=== PATIENT | male | born 2000 | race African-American/Black ===

== ENCOUNTER 2024-06-02 19:37 | Emergency (ER) | payer OTHER, SELFPAY ==
[2024-06-02] MEDS ORDERED: ONDANSETRON 4 MG/2 ML VIAL ONE (21:02)
[2024-06-02] MEDS ORDERED: NA CHLORIDE 0.9% 1,000 ML ONE (21:02)
[2024-06-02 21:04] LABS: Absolute Basophils 0.1 K/uL (0-0.5); Absolute Eosinophils 0.2 K/uL (0-0.5); Absolute Lymphocytes (CBC) 2.1 K/uL (0.7-4.9); Absolute Monocytes 0.5 K/uL (0.1-1.3); Absolute Neutrophil 2.5 K/uL (1.8-8.0); Basophils % 1.5 % (0-1.3); Eosinophils % 4.1 % (0-4.4); Hematocrit 45.9 % (39.6-49.0); Hemoglobin 15.8 g/dL (13.6-17.9); Lymphocytes % 39.3 % (15.3-44.8); MCH 29.9 pg (27.0-35.0); MCHC 34.4 g/dL (32.0-36.0); MPV 8.6 fL (7.6-11.3); Monocytes % 9.1 % (3.3-12.3); Nucleated Red Blood Cells % 0.2 % (0-0); Platelets 229 thou/uL (152-406); RBC Red Blood Cell Count 5.27 M/uL (4.33-5.43); Red Cell Distribution Width 13.7 % (12.1-15.2)
[2024-06-02 21:20] LABS: Albumin 3.7 g/dL (3.4-5.0); Bilirubin Total 0.9 mg/dL (0.2-1.0); Globulin 3.7 g/dL (2.3-3.5); Protein, Total 7.4 g/dL (6.4-8.2)
--- NOTE | 2024-06-02 22:32 | RAD REPORT ---
EXAMINATION: CT Abdomen Pelvis W Contrast CLINICAL INDICATION: Male, 24 years old. ABD PAIN TECHNIQUE: CT abdomen and pelvis was performed, after the administration of IV contrast, as per [facility] protocol. Axial, sagittal and coronal reconstructions were obtained. One or more of the following dose reduction techniques were used: Automated exposure control, adjustment of the mA and k V according to patient size, and iterative reconstruction. Unless otherwise specified, incidental findings do not require dedicated imaging follow-up. COMPARISON: No prior exam. FINDINGS: LOWER CHEST: The visualized lung bases are clear. LIVER: Normal in size and contour. No focal lesion. BILIARY SYSTEM: No suspicious abnormalities. SPLEEN: Normal size. No focal lesion. PANCREAS: No mass, ductal dilation, or apolinar-pancreatic fluid. ADRENALS: Normal; no mass. KIDNEYS: Normal size and contour. No hydronephrosis. URINARY BLADDER: Unremarkable. GASTROINTESTINAL TRACT: No evidence of free air, bowel obstruction or abscess. Trace free fluid in the deep pelvis. APPENDIX: Normal appendix. LYMPH NODES: No lymphadenopathy. MUSCULOSKELETAL: No acute or suspicious osseous abnormality. ADDITIONAL FINDINGS: None. IMPRESSION: Trace free fluid in the deep pelvis, could relate to a mild infectious or inflammatory process. No other acute or concerning abnormalities seen in the abdomen or pelvis.
--- NOTE | 2024-06-02 22:59 | EDPHYS ---
Physician Documentation [facility] Name: Bridget Soto Jr Age: 24 yrs Sex: Male : 2000 Arrival Date: 06/02/2024 Time: 19:37 Bed 7 Private MD: ED Physician Bigg Laguna HPI: 06/02 22:02 This 24 yrs old Black Male presents to ER via Ambulatory with complaints of sb4 Nausea/Vomiting/Diarrhea. 22:02 The patient presents to the emergency department with nausea, vomiting, diarrhea. sb4 Onset: The symptoms/episode began/occurred 2 day(s) ago. Possible causes: unknown. The symptoms are aggravated by nothing. The symptoms are alleviated by nothing. Associated signs and symptoms: Pertinent negatives: abdominal pain, fever, GI bleeding. The patient has not experienced similar symptoms in the past. Historical: - Allergies: 20:17 No Known Allergies; cm10 - Home Meds: 20:15 None [Active]; cm10 - PMHx: 20:15 None; cm10 - PSHx: 20:15 None; cm10 - Immunization history:: Adult Immunizations up to date. - Infectious Disease History:: Denies. - Social history:: Smoking status: Patient denies any tobacco usage or history of. ROS: 22:03 Constitutional: Negative for fever, chills, and weight loss, sb4 22:03 Abdomen/GI: Positive for nausea, vomiting, and diarrhea, 22:03 All other systems are negative, Exam: 22:03 Constitutional: This is a well developed, well nourished patient who is awake, alert, sb4 and in no acute distress. Head/Face: Normocephalic, atraumatic. Eyes: Extra-ocular motions intact. Periorbital areas with no swelling, redness, or edema. ENT: Mucous membranes moist. Cardiovascular: Regular rate and rhythm with a normal S1 and S2. Respiratory: No increased work of breathing, no retractions or nasal flaring. Abdomen/GI: Soft, non-tender, no distension. Skin: Warm, dry with normal turgor. Normal color with no rashes, no lesions, and no evidence of cellulitis. Vital Signs: 20:14 BP 106 / 66; Pulse 77; Resp 18; Temp 98.8(O); Pulse Ox 99% on R/A; Weight 81.65 kg; cm10 Height 6 ft. 1 in. ; Pain 0/10; 21:00 BP 101 / 80; Pulse 67; Resp 16; Pulse Ox 99% on R/A; al5 21:30 BP 102 / 73; Pulse 51; Resp 16; Pulse Ox 100% ; al5 22:00 BP 118 / 85; Pulse 62; Resp 17; Pulse Ox 100% ; al5 22:30 BP 108 / 78; Pulse 61; Resp 16; Pulse Ox 98% ; al5 23:07 BP 109 / 79; Pulse 63; Resp 16; Pulse Ox 100% ; al5 20:14 Body Mass Index 23.75 (81.65 kg, 185.42 cm) cm10 20:14 Pain Scale: Adult cm10 MDM: 20:32 Medical Screening Exam initiated sb4 22:58 Data reviewed: vital signs, nurses notes, lab test result(s), radiologic studies, and sb4 as a result, I will discharge patient. Counseling: I had a detailed discussion with the patient and/or guardian regarding the historical points, exam findings, and any diagnostic results supporting the discharge/admit diagnosis, lab results, radiology results, the need for outpatient follow up, for definitive care, to return to the emergency department if symptoms worsen or persist or if there are any questions or concerns that arise at home. 06/02 20:52 Order name: CBC with Diff; Complete Time: 21:16 sb4 06/02 20:52 Order name: CMP; Complete Time: 21:22 sb4 06/02 20:52 Order name: Lipase; Complete Time: 21:22 sb4 06/02 21:23 Order name: CT Abd/Pelvis - IV Contrast Only; Complete Time: 22:33 sb4 06/02 20:52 Order name: IV Saline Lock; Complete Time: 20:57 sb4 06/02 20:52 Order name: Labs collected and sent; Complete Time: 20:58 sb4 06/02 22:33 Order name: PO challenge; Complete Time: 22:50 sb4 Administered Medications: 21:06 Drug: Ondansetron IVP 4 mg IVP once; over 2 minutes Route: IVP; Site: right antecubital;al5 22:50 Follow up: Response: No adverse reaction; Nausea is decreased al5 21:06 Drug: NS 0.9% IV 1000 ml IV at 1 bolus Per protocol; to be given as a bolus over 60 al5 minutes Route: IV; Rate: 1 bolus; Site: right antecubital; 22:50 Follow up: Response: No adverse reaction; IV Status: Completed infusion; IV Intake: al5 1000ml Disposition Summary: 06/02/24 22:59 Discharge Ordered Notes: Location: Home sb4 Problem: new sb4 Symptoms: have improved sb4 Condition: Stable sb4 Diagnosis - Nausea with vomiting, unspecified sb4 - Diarrhea, unspecified sb4 Followup: sb4 - With: Private Physician - When: 1 week - Reason: Recheck today's complaints, Re-evaluation by your physician Discharge Instructions: - Discharge Summary Sheet sb4 - Diarrhea, Adult sb4 - Nausea and Vomiting, Adult sb4 Forms: - Work release form sb4 - Patient Portal Instructions sb4 - Leadership Thank You Letter sb4 Prescriptions: - Imodium A-D 2 mg Oral tablet - take 1 tablet ORAL route 4 times per day as needed for loose stool; 12 tablet; sb4 Refills: 0, Product Selection Permitted - dicyclomine 10 mg Oral capsule - take 1 capsule ORAL route 3 times per day PRN abdominal cramps; 20 capsule; sb4 Refills: 0, Product Selection Permitted - ondansetron 8 mg Oral Tablet,disintegrating - take 1 tablet ORAL route every 8 hours; 10 tablet; Refills: 0, Product sb4 Selection Permitted Signatures: Dispatcher [employer] Zhanna Samano PA-C PA-C sb4 Teri King RN RN cm10 Azra Olivares RN RN al5 Corrections: (The following items were deleted from the chart) 20:18 20:15 Allergies: Aspirin; cm10 cm10 20:52 20:52 CBC+H.LAB.BRZ ordered. EDMS EDMS 20:52 20:52 COMPREHENSIVE METABOLIC PANEL+C.LAB.BRZ ordered. EDMS EDMS 20:52 20:52 LIPASE+C.LAB.BRZ ordered. EDMS EDMS
--- NOTE | 2024-06-02 22:59 | ER ---
Nurse's Notes [facility] Name: Bridget Soto Jr Age: 24 yrs Sex: Male : 2000 Arrival Date: 06/02/2024 Time: 19:37 Bed 7 Private MD: Diagnosis: Nausea with vomiting, unspecified;Diarrhea, unspecified Presentation: 06/02 20:14 Chief complaint: Patient states: vomiting and diarrhea onset Sunday. No other symptoms. cm10 No sick contacts. Coronavirus screen: Client denies travel out of the [place] in the last 14 days. Ebola Screen: Patient denies travel to an Ebola-affected area in the 21 days before illness onset. Initial Sepsis Screen: Does the patient meet any 2 criteria? No. Patient's initial sepsis screen is negative. Does the patient have a suspected source of infection? No. Patient's initial sepsis screen is negative. Risk Assessment: Do you want to hurt yourself or someone else? Patient reports no desire to harm self or others. Onset of symptoms was June 02, 2024. 20:14 Method Of Arrival: Ambulatory cm10 20:14 Acuity: VA 4 cm10 Triage Assessment: 20:15 General: Appears in no apparent distress. comfortable, Behavior is calm, cooperative. cm10 Pain: Denies pain. Neuro: No deficits noted. Level of Consciousness is awake, alert, obeys commands, Oriented to person, place, time, situation, Appropriate for age. Respiratory: No deficits noted. Airway is patent Respiratory effort is even, unlabored, Respiratory pattern is regular, symmetrical. GI: Reports diarrhea, nausea, vomiting. Historical: - Allergies: 20:17 No Known Allergies; cm10 - Home Meds: 20:15 None [Active]; cm10 - PMHx: 20:15 None; cm10 - PSHx: 20:15 None; cm10 - Immunization history:: Adult Immunizations up to date. - Infectious Disease History:: Denies. - Social history:: Smoking status: Patient denies any tobacco usage or history of. Screenin:07 [facility] ED Fall Risk Assessment (Adult) History of falling in the last 3 months, al5 including since admission No falls in past 3 months (0 pts) Confusion or Disorientation No (0 pts) Intoxicated or Sedated No (0 pts) Impaired Gait No (0 pts) Mobility Assist Device Used No (0 pt) Altered Elimination No (0 pt) Score/Fall Risk Level 0 - 2 = Low Risk Oriented to surroundings, Maintained a safe environment, Hourly rounding (assess needs \T\ fall precautionary measures) done. Abuse screen: Denies threats or abuse. Denies injuries from another. Nutritional screening: No deficits noted. Tuberculosis screening: No symptoms or risk factors identified. Assessment: 21:07 General: Appears in no apparent distress. comfortable, Behavior is calm, cooperative. al5 Pain: Complains of pain in abdomen. Neuro: Level of Consciousness is awake, alert, obeys commands, Oriented to person, place, time, situation. Cardiovascular: Capillary refill < 3 seconds Patient's skin is warm and dry. Respiratory: Airway is patent Respiratory effort is even, unlabored, Respiratory pattern is regular, symmetrical. GI: Abdomen is flat, non-distended, Abd is soft and non tender X 4 quads. Reports lower abdominal pain, upper abdominal pain, nausea, vomiting. : No signs and/or symptoms were reported regarding the genitourinary system. EENT: No signs and/or symptoms were reported regarding the EENT system. Derm: Skin is intact, is healthy with good turgor, Skin is pink, warm \T\ dry. normal. Musculoskeletal: No signs and/or symptoms reported regarding the musculoskeletal system. 22:51 Reassessment: Patient appears in no apparent distress at this time. Patient and/or al5 family updated on plan of care and expected duration. Pain level reassessed. Patient is alert, oriented x 3, equal unlabored respirations, skin warm/dry/pink. Patient states feeling better. Patient states symptoms have improved. Vital Signs: 20:14 BP 106 / 66; Pulse 77; Resp 18; Temp 98.8(O); Pulse Ox 99% on R/A; Weight 81.65 kg; cm10 Height 6 ft. 1 in. ; Pain 0/10; 21:00 BP 101 / 80; Pulse 67; Resp 16; Pulse Ox 99% on R/A; al5 21:30 BP 102 / 73; Pulse 51; Resp 16; Pulse Ox 100% ; al5 22:00 BP 118 / 85; Pulse 62; Resp 17; Pulse Ox 100% ; al5 22:30 BP 108 / 78; Pulse 61; Resp 16; Pulse Ox 98% ; al5 23:07 BP 109 / 79; Pulse 63; Resp 16; Pulse Ox 100% ; al5 20:14 Body Mass Index 23.75 (81.65 kg, 185.42 cm) cm10 20:14 Pain Scale: Adult cm10 ED Course: 19:38 Patient arrived in ED. gm2 19:50 [facility] Velazco [facility] sb4 19:50 Bigg Laguna MD is Attending Physician. sb4 20:15 Triage completed. cm10 20:15 Arm band placed on right wrist. Patient placed in waiting room. cm10 21:08 Azra Olivares, RN is Primary Nurse. al5 21:08 Patient has correct armband on for positive identification. Placed in gown. Bed in low al5 position. Call light in reach. Side rails up X 1. Provided Education on: plan of care. 21:08 No provider procedures requiring assistance completed. Inserted saline lock: 20 gauge al5 in right antecubital area, using aseptic technique. Blood collected. Flushed with 10 mL NS. 21:50 CT Abd/Pelvis - IV Contrast Only In Process Unspecified. EDMS 23:08 IV discontinued, intact, bleeding controlled, No redness/swelling at site. Pressure al5 dressing applied. Administered Medications: 21:06 Drug: Ondansetron IVP 4 mg IVP once; over 2 minutes Route: IVP; Site: right antecubital;al5 22:50 Follow up: Response: No adverse reaction; Nausea is decreased al5 21:06 Drug: NS 0.9% IV 1000 ml IV at 1 bolus Per protocol; to be given as a bolus over 60 al5 minutes Route: IV; Rate: 1 bolus; Site: right antecubital; 22:50 Follow up: Response: No adverse reaction; IV Status: Completed infusion; IV Intake: al5 1000ml Medication: 21:07 VIS not applicable for this client. al5 Intake: 22:50 IV: 1000ml; Total: 1000ml. al5 Outcome: 22:59 Discharge ordered by . sb4 23:08 Discharged to home ambulatory, with significant other, al5 23:08 Condition: good 23:08 Discharge instructions given to patient, Instructed on discharge instructions, follow up and referral plans. medication usage, Demonstrated understanding of instructions, follow-up care, medications, Prescriptions given X 3, 23:12 Patient left the ED. al5 Signatures: Dispatcher [employer] EDMS Zhanna Velazco PA-C PA-C sb4 Teri King RN RN cm10 Charlotte Crenshaw 2 Azra Olivares RN RN al5 Corrections: (The following items were deleted from the chart) 20:18 20:15 Allergies: Aspirin; cm10 cm10 23:12 23:08 Discharge instructions given to patient, Instructed on discharge instructions, al5 follow up and referral plans. medication usage, Demonstrated understanding of instructions, follow-up care, medications, Prescriptions given X 2, al5
[2024-06-03 23:05] VITALS: TEMP 98.8
[2024-06-03 23:13] VITALS: BP 109/79; O2SAT 100
== END 2024-06-02 23:12 | disposition home or self-care (01) ==
LOC: ER 19:37
DX: R11.2 Nausea with vomiting, unspecified (principal); R19.7 Diarrhea, unspecified
CPT/HCPCS: 36415; 74177; 80053; 83690; 85025; 96361; 96374; 99284; J2405; J7030; Q9967